=== PATIENT | male | born 1945 | race Caucasian/White ===

== ENCOUNTER 2016-05-07 15:32 | Outpatient (CLI) ==
[2016-05-10 09:11] LABS: % FREE PSA 12.8 % (.); PSA, FREE 0.83 ng/mL
== END 2016-05-07 15:33 | disposition home or self-care (01) ==
LOC: LAB 15:32
PROVIDERS: ATTEND General Practice
DX: R97.20 Elevated prostate specific antigen [PSA] (principal)
CPT/HCPCS: 36415; 84153

== ENCOUNTER 2016-07-08 15:31 | Outpatient (CLI) ==
[2016-07-08 16:29] LABS: BASOPHILS # (AUTO) 0.1 K/uL (0-0.2); BASOPHILS % (AUTO) 0.9 % (0.0-3.0); EOSINOPHILS # (AUTO) 0.7 K/ul (0.0-0.7); EOSINOPHILS % (AUTO) 7.6 % (0.0-7.0); HEMATOCRIT 38.4 % (42.0-52.0); HEMOGLOBIN 13.3 g/dl (14.0-18.0); IMMATURE GRANULOCYTE % (AUTO) 0.5 % (0.0-5.0); LYMPHOCYTES # (AUTO) 1.8 K/uL (0.60-3.4); LYMPHOCYTES % (AUTO) 21.1 (10.0-50.0); MEAN CORPUSCULAR HEMOGLOBIN 30.1 pg (27.0-31.0); MEAN CORPUSCULAR HGB CONC 34.6 (31.8-35.4); MEAN CORPUSCULAR VOLUME 86.9 fl (80.0-94.0); MONOCYTES # (AUTO) 0.6 K/uL (0.4-2.0); MONOCYTES % (AUTO) 7.4 (0-10); NEUTROPHILS # (AUTO) 5.3 K/ul (2.0-6.9); NEUTROPHILS % (AUTO) 62.5; PLATELET COUNT 219 10^3/uL (140-440); RED BLOOD COUNT 4.42 10^6/ul (4.70-6.10); WHITE BLOOD COUNT 8.54 K/ul (4.2-10.2)
[2016-07-08 16:31] LABS: BILIRUBIN,URINE Negative (NEGATIVE); KETONES,URINE Negative (NEGATIVE); LEUKOCYTE ESTERASE ,URINE Trace (NEGATIVE); NITRITE,URINE Negative (NEGATIVE); PH,URINE 5.5 (5-9); PROTEIN,URINE Negative (NEGATIVE); URINE, BLOOD 2+ (NEGATIVE)
[2016-07-08 16:33] LABS: ADD URINE MICROSCOPIC YES
[2016-07-08 16:45] LABS: ALBUMIN 3.8 g/dL (3.4-5.0); ALBUMIN/GLOBULIN RATIO 1.31; ANION GAP 13.9; BILIRUBIN,TOTAL 0.77 mg/dL (0.00-1.20); BUN/CREATININE RATIO 16.4; CALCIUM 9.4 mg/dL (8.2-10.2); CHOL/HDL RATIO 5.1 (4.5-6.4); CREATININE 1.28 mg/dL (0.60-1.10); POTASSIUM 3.9 mmol/L (3.5-5.1); TOTAL PROTEIN 6.7 g/dL (5.8-8.1)
== END 2016-07-08 15:32 | disposition home or self-care (01) ==
LOC: LAB 15:31
PROVIDERS: ATTEND General Practice
DX: K21.0 Gastro-esophageal reflux disease with esophagitis (principal); R31.29 Other microscopic hematuria; R97.20 Elevated prostate specific antigen [PSA]; E78.5 Hyperlipidemia, unspecified; M10.9 Gout, unspecified; N40.0 Benign prostatic hyperplasia without lower urinary tract symptoms; Z79.899 Other long term (current) drug therapy
CPT/HCPCS: 36415; 80053; 80061; 81001; 85025

== ENCOUNTER 2016-07-12 16:24 | Outpatient (CLI) | payer OTHER ==
[2016-07-12 17:11] LABS: ERYTHROCYTE SEDIMENTATION RATE 8 mm/hr (0-15); ESR INTERNAL QC INTERNAL QC VALID
[2016-07-15 07:45] LABS: RHEUMATOID ARTHRITIS FACTOR < 10.0 IU/mL (0.0-13.9)
[2016-07-17 07:41] LABS: ANTI-NUCLEAR ANTIBODY SCREEN Negative (Negative)
[2016-07-17 18:59] LABS: ALKALINE PHOSPHATASE, S 201 IU/L (39-117)
[2016-07-18 07:27] LABS: INTESTINAL FRAC.: 0 % (0-18)
== END 2016-07-12 16:25 | disposition home or self-care (01) ==
LOC: LAB 16:24
PROVIDERS: ATTEND General Practice
DX: R74.8 Abnormal levels of other serum enzymes (principal); R52 Pain, unspecified
CPT/HCPCS: 36415; 84075; 84080; 85651; 86038; 86430

== ENCOUNTER 2016-07-16 09:17 | Outpatient (CLI) ==
[2016-07-17 07:44] LABS: RHEUMATOID ARTHRITIS FACTOR < 10.0 IU/mL (0.0-13.9)
[2016-07-18 07:28] LABS: ANTI-NUCLEAR ANTIBODY SCREEN Negative (Negative)
== END 2016-07-16 09:18 | disposition home or self-care (01) ==
LOC: LAB 09:17
PROVIDERS: ATTEND General Practice
DX: R52 Pain, unspecified (principal)
CPT/HCPCS: 36415; 86038; 86430

== ENCOUNTER 2016-08-02 15:10 | Outpatient (CLI) ==
[2016-08-08 02:12] LABS: IGG P18 AB Present (.); IGG P23 AB Absent (.); IGG P28 AB Absent (.); IGG P30 AB Absent (.); IGG P39 AB Absent (.); IGG P41 AB Present (.); IGG P45 AB Absent (.); IGG P58 AB Absent (.); IGG P66 AB Present (.); IGG P93 AB Absent (.); IGM P39 AB Absent (.); IGM P41 AB Absent (.)
[2016-08-08 08:20] LABS: LYME IGG WB INTERP Negative (.); LYME IGM WB INTERP Negative (.)
== END 2016-08-02 15:11 | disposition home or self-care (01) ==
LOC: LAB 15:10
PROVIDERS: ATTEND General Practice
DX: M25.50 Pain in unspecified joint (principal); R53.83 Other fatigue
CPT/HCPCS: 36415; 86617

== ENCOUNTER 2016-08-13 12:00 | Outpatient (CLI) | payer OTHER ==
[2016-08-15 13:17] LABS: IGG P18 AB Present (.); IGG P23 AB Absent (.); IGG P28 AB Absent (.); IGG P30 AB Absent (.); IGG P39 AB Absent (.); IGG P41 AB Present (.); IGG P45 AB Absent (.); IGG P58 AB Absent (.); IGG P66 AB Absent (.); IGG P93 AB Absent (.); IGM P39 AB Absent (.); IGM P41 AB Absent (.)
[2016-08-15 21:59] LABS: LYME IGG WB INTERP Negative (.); LYME IGM WB INTERP Negative (.)
== END 2016-08-13 12:01 | disposition home or self-care (01) ==
LOC: LAB 12:00
PROVIDERS: ATTEND General Practice
DX: M25.50 Pain in unspecified joint (principal); R53.83 Other fatigue
CPT/HCPCS: 36415; 86617

== ENCOUNTER 2016-08-21 11:02 | Outpatient (CLI) ==
[2016-08-27 13:59] LABS: IGG P18 AB Absent (.); IGG P23 AB Absent (.); IGG P28 AB Absent (.); IGG P30 AB Absent (.); IGG P39 AB Absent (.); IGG P41 AB Present (.); IGG P45 AB Absent (.); IGG P58 AB Absent (.); IGG P66 AB Absent (.); IGG P93 AB Absent (.); IGM P39 AB Absent (.); IGM P41 AB Absent (.)
[2016-08-29 09:23] LABS: LYME IGG WB INTERP Negative (.); LYME IGM WB INTERP Negative (.)
== END 2016-08-21 11:03 | disposition home or self-care (01) ==
LOC: LAB 11:02
PROVIDERS: ATTEND General Practice
DX: R53.83 Other fatigue (principal); M25.40 Effusion, unspecified joint; R52 Pain, unspecified; G47.9 Sleep disorder, unspecified
CPT/HCPCS: 86617

== ENCOUNTER 2016-09-02 10:05 | Outpatient (CLI) ==
--- NOTE | 2016-09-02 11:50 | MRI ---
EXAM: MRI brain without IV contrast. DATE: 02 September 2016. HISTORY: Line disease diagnosed 21 years ago. Memory issues/memory fog. Fatigue. TECHNIQUE: Sagittal T1W, axial T2W, axial FLAIR, axial T1W, axial DWI, and coronal T2W GRE sequence s of the brain were obtained using 1.2 Eliana magnet. No IV contrast. COMPARISON: None. FINDINGS: The sylvian fissures and some frontal / parietal lobe sulci are slightly prominent due to involutional change. Some cerebellar sulci are also slightly prominent. No midline shift, mass ef fect or abnormal extra-axial fluid collection is apparent. No acute infarct, hemorrhage or neoplasm is identified. Minimal T2W/FLAIR hyperintensity is observed in the white matter abutting each late ral ventricle. A handful of 2-5 mm, T2W/FLAIR bright foci are scattered within the left parietal co fabi radiata and left frontal / parietal subcortical white matter bilaterally. The harris - white mat ter differentiation is normal. The 7th/8th cranial nerve complexes, cerebellopontine angles, brains tem, and visible cervical spinal cord are normal. There is no cerebellar tonsillar ectopia. The pi tuitary gland is low normal in size. Corpus callosum is normal in size and configuration. Vertebrob asilar arterial system is somewhat tortuous. Flow voids are present in the major intracranial arter ies and in the dural venous sinuses. No aneurysm, AVM or dural venous sinus thrombosis is apparent. Appearance in the lens of the left eye suggests prior cataract surgery. No other orbit abnormalit y is identified. The mastoid air cells are unremarkable. There is no acute sinusitis. No neck mas s or lymphadenopathy is detected. No calvarial neoplasm or acute fracture is evident. A 1.8 mm ant erior subluxation of C2 relative to C3 is noted, but no C2-3 central canal stenosis. IMPRESSIONS: 1. No acute infarct, hemorrhage, mass or hydrocephalus. 2. Minor cerebral small vessel disease. 4. Minor cerebral involutional change.
== END 2016-09-02 10:06 | disposition home or self-care (01) ==
LOC: RAD 10:05
PROVIDERS: ATTEND General Practice
DX: R68.89 Other general symptoms and signs (principal); R41.0 Disorientation, unspecified

== ENCOUNTER 2016-11-08 10:43 | Outpatient (CLI) ==
[2016-11-09 09:52] LABS: % FREE PSA 16.6 % (.); PSA, FREE 0.93 ng/mL
== END 2016-11-08 10:44 | disposition home or self-care (01) ==
LOC: LAB 10:43
PROVIDERS: ATTEND Surgery
DX: Z12.5 Encounter for screening for malignant neoplasm of prostate (principal); R97.20 Elevated prostate specific antigen [PSA]
CPT/HCPCS: 36415

== ENCOUNTER 2017-03-05 08:00 | Outpatient (CLI) ==
[2017-03-05 13:00] LABS: BASOPHILS % (AUTO) 0.5 % (0.0-3.0); EOSINOPHILS # (AUTO) 0.1 K/ul (0.0-0.7); EOSINOPHILS % (AUTO) 1.1 % (0.0-7.0); HEMATOCRIT 41.5 % (42.0-52.0); IMMATURE GRANULOCYTE % (AUTO) 0.5 % (0.0-5.0); LYMPHOCYTES # (AUTO) 0.7 K/uL (0.60-3.4); LYMPHOCYTES % (AUTO) 8.7 (10.0-50.0); MEAN CORPUSCULAR HEMOGLOBIN 30.6 pg (27.0-31.0); MEAN CORPUSCULAR HGB CONC 33.7 (31.8-35.4); MEAN CORPUSCULAR VOLUME 90.8 fl (80.0-94.0); MONOCYTES # (AUTO) 0.3 K/uL (0.4-2.0); MONOCYTES % (AUTO) 4.3 (0-10); NEUTROPHILS # (AUTO) 6.4 K/ul (2.0-6.9); NEUTROPHILS % (AUTO) 84.9; PLATELET COUNT 325 10^3/uL (140-440); RED BLOOD COUNT 4.57 10^6/ul (4.70-6.10); WHITE BLOOD COUNT 7.49 K/ul (4.2-10.2)
[2017-03-05 13:42] LABS: ALBUMIN 3.5 g/dL (3.4-5.0); ALBUMIN/GLOBULIN RATIO 0.85; ANION GAP 17.9; BILIRUBIN,TOTAL 0.91 mg/dL (0.00-1.20); BUN/CREATININE RATIO 10.9; CALCIUM 10.5 mg/dL (8.2-10.2); CREATININE 1.1 mg/dL (0.60-1.10); MAGNESIUM 2.5 mg/dL (1.7-2.2); POTASSIUM 4.9 mmol/L (3.5-5.1); TOTAL PROTEIN 7.6 g/dL (5.8-8.1); URIC ACID 4.4 mg/dL (2.6-7.2)
== END 2017-03-05 08:01 | disposition home or self-care (01) ==
LOC: CAR 08:00
PROVIDERS: ATTEND General Practice
DX: R01.1 Cardiac murmur, unspecified (principal); M10.9 Gout, unspecified; R63.4 Abnormal weight loss
CPT/HCPCS: 36415; 80053; 83735; 84550; 85025

== ENCOUNTER 2017-03-07 12:21 | Outpatient (POV) | END 2017-03-07 12:22 | disposition home or self-care (01) | LOC: LAB 12:21 | PROVIDERS: ATTEND General Practice | DX: M10.9 Gout, unspecified (principal); R63.4 Abnormal weight loss ==

== ENCOUNTER 2017-04-22 16:43 | Outpatient (CLI) | END 2017-04-22 16:44 | disposition home or self-care (01) | LOC: LAB 16:43 | PROVIDERS: ATTEND General Practice | DX: R74.8 Abnormal levels of other serum enzymes (principal) | CPT/HCPCS: 36415; 84075; 84080 ==

== ENCOUNTER 2017-04-28 14:34 | Outpatient (CLI) | END 2017-04-28 14:35 | disposition home or self-care (01) | LOC: LAB 14:34 | PROVIDERS: ATTEND General Practice | DX: R74.8 Abnormal levels of other serum enzymes (principal) | CPT/HCPCS: 36415; 80069 ==

== ENCOUNTER 2017-04-30 07:50 | Outpatient (CLI) | payer OTHER ==
--- NOTE | 2017-04-30 09:31 | CT ---
EXAM: CT ABDOMEN AND PELVIS HISTORY: Abnormal serum enzymes, high alkaline phosphatase. History of kidney stones TECHNIQUE: CT abdomen and pelvis without intravenous contrast. Images were reconstructed using 3 mm section thickness. Reformations were prepared. COMPARISON: None FINDINGS: Liver has no evidence of focal lesion within limits of this unenhanced exam. No intrahepatic biliary dilatation. Spleen within normal limits. Gallbladder, pancreas and adrenal glands within normal li mits. Bilateral nephrolithiasis with punctate stones for the most part, largest located on the right at 2.5 mm. Each kidney has at least one cortical cystic mass largest on the left at 3.8 cm superior ly. These appear represent cysts although can be further assessed by ultrasound if indicated. There is no hydronephrosis or evidence of ureteral obstruction. No perinephric fat stranding. Mild to mod erate atherosclerotic disease. Normal caliber of the abdominal aorta. Stomach is within normal limits. Normal appendix. There is diffuse colonic diverticulosis, mild for the most part, becoming more moderate distal descending and sigmoid levels. Urinary bladder appears normal. There is moderate prostate enlargement. No ascites or inflammatory infiltration of the abd ominal fat. Ventral abdominal wall is intact. The bones reveal moderate degenerative disc and facet disease of t he spine with mild scoliosis. Lung bases are free of acute infiltrate. No pneumoperitoneum. IMPRESSION: 1. The liver has no focal lesions or intrahepatic biliary dilatation. No definite cirrhotic archite cture of the liver. Correlate clinically. No gallbladder pathology. 2. Bilateral nephrolithiasis without hydronephrosis or ureteral obstruction. 3. Mild to moderate atherosclerotic disease. 4. Moderate prostate enlargement. 5. Diffuse colonic diverticulosis, mild for the most part. No diverticulitis.
== END 2017-04-30 07:51 | disposition home or self-care (01) ==
LOC: RAD 07:50
PROVIDERS: ATTEND General Practice
DX: R74.8 Abnormal levels of other serum enzymes (principal)

== ENCOUNTER 2017-06-25 15:29 | Outpatient (CLI) | END 2017-06-25 15:30 | disposition home or self-care (01) | LOC: LAB 15:29 | PROVIDERS: ATTEND Internal Medicine Endocrinology, Diabetes & Metabolism | DX: E83.52 Hypercalcemia (principal); R74.8 Abnormal levels of other serum enzymes | CPT/HCPCS: 36415; 80053; 82306; 82977; 83970; 84443; 85025 ==

== ENCOUNTER 2017-07-07 16:05 | Outpatient (CLI) | END 2017-07-07 16:06 | disposition home or self-care (01) | LOC: LAB 16:05 | PROVIDERS: ATTEND General Practice | DX: R74.8 Abnormal levels of other serum enzymes (principal); R10.9 Unspecified abdominal pain; R11.0 Nausea | CPT/HCPCS: 36415; 84075 ==

== ENCOUNTER 2017-08-29 11:01 | Outpatient (CLI) | END 2017-08-29 11:02 | disposition home or self-care (01) | LOC: FCC-LAB 11:01 | PROVIDERS: ATTEND General Practice | DX: R74.8 Abnormal levels of other serum enzymes (principal) | CPT/HCPCS: 36415; 84075 ==

== ENCOUNTER 2017-09-02 11:10 | Outpatient (CLI) | payer OTHER ==
--- NOTE | 2017-09-02 15:56 | DI ---
Exam: Two views of the right hip. Comparison: CT abdomen pelvis performed 04/29/2017. Reason for exam: Right hip pain. FINDINGS: No acute fracture or dislocation. The right femoral head articulates with the acetabulum. There is mild degenerative disease. Typically benign appearing soft tissue calcifications are seen adjacent to the hip. Impression: No acute fracture or dislocation in the right hip
== END 2017-09-02 11:11 | disposition home or self-care (01) ==
LOC: RAD 11:10
PROVIDERS: ATTEND General Practice
DX: M25.551 Pain in right hip (principal); G89.29 Other chronic pain

== ENCOUNTER 2017-12-09 19:04 | Outpatient (CLI) | END 2017-12-09 19:05 | disposition home or self-care (01) | LOC: LAB 19:04 | PROVIDERS: ATTEND General Practice | DX: R74.8 Abnormal levels of other serum enzymes (principal) | CPT/HCPCS: 36415; 82977; 84075; 84080 ==

== ENCOUNTER 2017-12-15 13:49 | Outpatient (CLI) | END 2017-12-15 13:50 | disposition home or self-care (01) | LOC: FCC-LAB 13:49 | PROVIDERS: ATTEND General Practice | DX: R31.29 Other microscopic hematuria (principal); M10.9 Gout, unspecified; D64.9 Anemia, unspecified; E78.5 Hyperlipidemia, unspecified | CPT/HCPCS: 36415; 80053; 80061; 81001; 82607; 82728; 82746; 83540; 83550; 84466; 85025; 85045 ==

== ENCOUNTER 2018-07-07 11:23 | Outpatient (CLI) | END 2018-07-07 11:24 | disposition home or self-care (01) | LOC: RHC-LAB 11:23 | PROVIDERS: ATTEND General Practice | DX: R97.20 Elevated prostate specific antigen [PSA] (principal); Z79.899 Other long term (current) drug therapy; Z12.5 Encounter for screening for malignant neoplasm of prostate | CPT/HCPCS: 36415; 80053; 80061; 81001; 85025 ==